=== PATIENT | male | born 1960 | race Caucasian/White ===

== ENCOUNTER 2018-07-18 10:27 | Day surgery (SDC) | payer OTHER ==
[2018-07-18] MEDS ORDERED: LR 1,000 ML IV ONE (11:04)
--- NOTE | 2018-07-18 11:59 | PDANEPAE ---
ANE History of Present Illness 58 year old male with history of colon polyps for colonoscopy. 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 ANE Past Medical History - Cardiovascular History Hx Hypertension: Yes Hx Arrhythmias: No Hx Chest Pain: No Hx Coronary Artery / Peripheral Vascular Disease: No Hx CHF / Valvular Disease: No Hx Palpitations: No Cardiovascular History Comment: pcp monitors bp meds - Pulmonary History Hx COPD: No Hx Asthma/Reactive Airway Disease: No Hx Recent Upper Respiratory Infection: No Hx Oxygen in Use at Home: No Hx Sleep Apnea: No Sleep Apnea Screening Result - Last Documented: Positive Pulmonary History Comment: juan triggers - Neurologic History Hx Cerebrovascular Accident: No Hx Seizures: No Hx Dementia: No - Endocrine History Hx Diabetes: Yes Endocrine History Comment: type 2 - Renal History Hx Renal Disorders: Yes Renal History Comment: hx of right nephrectomy - Liver History Hx Hepatic Disorders: No - Neurological & Psychiatric Hx Hx Neurological and Psychiatric Disorders: No - Cancer History Hx Cancer: Yes Cancer History Comment: sarcoma x2, surgery and radiation prior to surgery - Congenital Disorder History Hx Congenital Disorders: No - GI History Hx Gastrointestinal Disorders: No - Other Health History Other Health History: wears glasses - Chronic Pain History Chronic Pain: No - Surgical History Prior Surgeries: removal of sarcoma tumor from abd x2 with right nephrectomy ANE Review of Systems Review of systems is: negative Review of Systems: - Exercise capacity METS (RN): 4 METS ANE Patient History - Allergies Allergies/Adverse Reactions: No Known Allergies Allergy (Verified 07/10/18 10:38) - Home Medications Home Medications: Lisinopril 07/10/18 [Last Taken 07/16/18] Metformin HCl 07/10/18 [Last Taken 07/16/18] diphenhydrAMINE [Benadryl 50 MG (*)] 50 mg PO PRN 07/18/18 [Last Taken 07/16/18] - NPO status NPO Since - Liquids (Date): 07/18/18 NPO Since - Liquids (Time): 02:00 NPO Since - Solids (Date): 07/17/18 NPO Since - Solids (Time): 09:00 - Smoking Hx Smoking Status: Never smoked - Family Anes Hx Family Hx Anesthesia Complications: none ANE Labs/Vital Signs - Vital Signs Blood Pressure: 131/84 Heart Rate: 76 Respiratory Rate: 16 O2 Sat (%): 96 Height: 177.8 cm Weight: 99.79 kg ANE Physical Exam - Airway Neck exam: FROM Mallampati Score: Class 2 Mouth exam: normal dental/mouth exam - Pulmonary Pulmonary: no respiratory distress - Cardiovascular Cardiovascular: regular rate and rhythym - ASA Status ASA Status: III ANE Anesthesia Plan Anesthesia Plan: MAC
[2018-07-18] MEDS ORDERED: PROPOFOL/EMULSION 500 MG/50 ML BOTTLE IV ONE (12:01)
[2018-07-18] MEDS ORDERED: fentaNYL 100 MCG/2 ML INJ ONE (12:02)
--- NOTE | 2018-07-18 12:20 | PDGENHP ---
History & Physical Chief Complaint: phx polyps History of Present Illness: large polyps Pertinent Past, Social, Family History: HTN, DM. phx polyps Relevant Physical Exam: A+Ox3. CTA. S1S2. +BS, soft, nt Cardiorespiratory Assessment: class 3
[2018-07-18] MEDS ORDERED: ONDANSETRON 4 MG/2 ML VIAL IVP PRN (12:40)
[2018-07-18] MEDS ORDERED: NALOXONE HCL 0.4 MG/ML INJ IVP PRN (12:40)
[2018-07-18] MEDS ORDERED: LABETALOL HCL 5 MG/ML 20 ML MDV IVP PRN (12:40)
[2018-07-18] MEDS ORDERED: fentaNYL 100 MCG/2 ML INJ IVP PRN (12:40)
[2018-07-18] MEDS ORDERED: LR 500 ML IV PRN (12:40)
[2018-07-18] MEDS ORDERED: oxyCODONE IR 5 MG TAB PO PRN (12:40)
--- NOTE | 2018-07-18 13:02 | POSTANESTH ---
Post Anesthetic Evaluation Cardiovascular Status: Normal, Stable Respiratory Status: Normal, Stable Level of Consciousness/Mental Status: Mildly Sleepy, Arousable Pain Control: Adequate, Prn Tx Ordered Nausea/Vomiting Control: Adequate, Prn Tx Ordered Complications Possibly Related to Anesthesia: None Noted
--- NOTE | 2018-07-18 13:08 | GIREPORT ---
Formerly [facility] - Endoscopy Department Patient Name: James Dupont Procedure Date: 07/18/2018 12:12 PM Patient Type: Outpatient Attending MD/ ER Physician: Nestor Cherry MD Procedure: Colonoscopy Indications: High risk colon cancer surveillance: Personal history of adenoma (10 mm or greater in size) Providers: Nestor Cherry MD Referring MD: Ameena Ham Medicines: Propofol per Anesthesia Complications: No immediate complications. Estimated blood loss: Minimal. Description of Procedure: After obtaining informed consent, the scope was passed under direct vis ion. Throughout the procedure, the patient's blood pressure, pulse, and oxyg en saturations were monitored continuously. The Colonoscope with irrigatio n channel was introduced through the anus and advanced to the terminal il eum, with identification of the appendiceal orifice and IC valve. The colono scopy was performed without difficulty. The patient tolerated the procedure w ell. The quality of the bowel preparation was good. Findings: The digital rectal exam was normal. The terminal ileum appeared normal. A single localized non-bleeding erosion was found at the splenic flexur e. Biopsies were taken with a cold forceps for histology. Estimated blood loss was minimal. A 4 mm polyp was found in the rectum. The polyp was semi-sessile. The p olyp was removed with a cold snare. Resection and retrieval were complete. Estimated blood loss was minimal. The exam was otherwise without abnormality. Estimated Blood Loss: Estimated blood loss was minimal. Post Op Diagnosis: - The examined portion of the ileum was normal. - A single erosion at the splenic flexure. Biopsied. - One 4 mm polyp in the rectum, removed with a cold snare. Resected and retrieved. - The examination was otherwise normal. Recommendation: - Await pathology results. - My office will call with the pathology result with 5-7 days. If you h ave not heard from my office by 12-14, do not assume the pathology is tomas l, please call [phone] to get the pathology results. - Repeat colonoscopy in 5 years for surveillance. - High fiber diet. - Patient has a contact number available for emergencies. The signs and symptoms of potential delayed complications were discussed with the pat ient. Return to normal activities tomorrow. Written discharge instructions we re provided to the patient. - Continue present medications. - Discharge patient to home (ambulatory). - Return to primary care physician as previously scheduled. - Thank you for allowing me to help in your patient's care. Do not hesi farris to call with any questions. Attending Participation: I personally performed the entire procedure. Dilip Singh M.D Nestor Cherry MD 07/18/2018 1:07:42 PM This report has been signed electronicallyMatthew MD Dilip Number of Addenda: 0 Note Initiated On: 07/18/2018 12:12 PM Total Procedure Duration Time 0 hours 17 minutes 39 seconds [email or web address]
[2018-07-18 14:20] VITALS: BP 134/85
== END 2018-07-18 14:30 | disposition home or self-care (01) ==
LOC: FSGY 10:27
PROVIDERS: ATTEND Internal Medicine Gastroenterology
PROC: 0DBP8ZX Excision of Rectum, Via Natural or Artificial Opening Endoscopic, Diagnostic (ICD-10-PCS; principal; 2018-07-18 12:00)
PROC: 0DBL8ZX Excision of Transverse Colon, Via Natural or Artificial Opening Endoscopic, Diagnostic (ICD-10-PCS; principal; 2018-07-18 12:00)
DX: Z12.11 Encounter for screening for malignant neoplasm of colon (principal); D12.8 Benign neoplasm of rectum; I10 Essential (primary) hypertension; E11.9 Type 2 diabetes mellitus without complications; Z86.010 Personal history of colon polyps; Z85.831 Personal history of malignant neoplasm of soft tissue; Z90.5 Acquired absence of kidney
CPT/HCPCS: J2704; J3010